=== PATIENT | female | born 1955 | race Caucasian/White ===

== ENCOUNTER → 2021-03-16 | Outpatient (CLI) | payer MEDICARE ==
[~2021-03-16] MED LIST: NORFLEX 100 MG100 MG PO; Voltaren Gel 1 % TOP
== END ==
LOC: KOH-I 13:52
DX: M54.5 Low back pain (principal); E11.9 Type 2 diabetes mellitus without complications; E55.9 Vitamin D deficiency, unspecified; M81.0 Age-related osteoporosis without current pathological fracture; M54.17 Radiculopathy, lumbosacral region
CPT/HCPCS: 72070; 72100

== ENCOUNTER → 2021-03-28 | Outpatient (CLI) | payer MEDICARE | LOC: KOH-I 09:43 | DX: M51.36 Other intervertebral disc degeneration, lumbar region (principal); M48.061 Spinal stenosis, lumbar region without neurogenic claudication; M51.37 Other intervertebral disc degeneration, lumbosacral region; M48.07 Spinal stenosis, lumbosacral region; M51.27 Other intervertebral disc displacement, lumbosacral region | CPT/HCPCS: 72148 ==